=== PATIENT | male | born 1930 | race Caucasian/White ===

== ENCOUNTER 2017-05-19 09:28 | Outpatient (CLI) | payer MEDICARE, OTHER ==
--- NOTE | 2017-05-19 15:50 | PET ---
RADIONUCLIDE PET SCAN FOR DEMENTIA 05/19/17 HISTORY: Cognitive decline. Frontotemporal dementia. FINDINGS: Physiologic uptake of radiotracer is present throughout each cerebral hemisphere. Difference in upta ke involving the frontal and parietal lobes is not significant compared to the remainder of the cere bral hemispheres. No abnormal areas of increased radiotracer uptake are evident. IMPRESSION: No focal hypometabolic activity is apparent. Exam is not diagnostic for Alzheimer's dementia pattern . POS: MIC[facility]
== END 2017-05-19 09:29 | disposition home or self-care (01) ==
LOC: PET 09:28
PROVIDERS: ATTEND Psychiatry & Neurology Neurology
DX: G31.09 Other frontotemporal neurocognitive disorder (principal); R41.89 Other symptoms and signs involving cognitive functions and awareness
CPT/HCPCS: 78608; A9552